=== PATIENT | female | born 1990 | race African-American/Black ===

== ENCOUNTER 2020-06-29 12:41 | Emergency (ER) | payer OTHER ==
[~2020-06-29] VITALS: Ht 152.4 cm; Wt 64.0 kg
[2020-06-29 12:59] VITALS: Ht 152.4 cm; Wt 64.0 kg
[2020-06-29 14:41] LABS: BASOPHIL % 0.3 % (0.2-1.3); PLATELET COUNT 213 x10^3mcL (179-408)
[2020-06-29 14:45] LABS: RED CELL DISTRIBUTION WIDTH 16.4 % (12.3-17.7)
[2020-06-29 14:51] LABS: CALCIUM 8.9 mg/dL (8.5-10.1); CARBON DIOXIDE 27.2 mmol/L (21-32); CHLORIDE SERUM 104 mmol/L (98-107); GFR1 > 60 mL/min; GLUCOSE SERUM 92 mg/dL (74-106); POTASSIUM SERUM 3.8 mmol/L (3.5-5.1); SODIUM SERUM 139 mmol/L (136-145)
[2020-06-29 14:57] LABS: ALBUMIN 3.9 g/dL (3.4-5.0); ALKALINE PHOSPHATASE 42 U/L (46-116); ALT/SGPT 20 U/L (14-59); AST/SGOT 15 U/L (15-37); BILIRUBIN TOTAL 0.73 mg/dL (0.20-1.00); LIPASE 72 IU/L (73-393); TOTAL PROTEIN, SERUM 7.6 g/dL (6.4-8.2)
[2020-06-29 15:04] LABS: UA SPECIFIC GRAVITY >=1.030 (1.005-1.035); microscopic required? YES; urine erythrocyte 3+ (NEGATIVE)
[2020-06-29 15:51] LABS: AMPHETAMINE QUAL UR NONE DETECTED (See below)
[2020-06-29 17:50] VITALS: BP 114/63
== END 2020-06-29 17:50 | disposition home or self-care (01) ==
LOC: ED 12:41
PROVIDERS: Emergency Medicine
DX: R10.30 Lower abdominal pain, unspecified (principal); R11.0 Nausea; F12.988 Cannabis use, unspecified with other cannabis-induced disorder; N94.6 Dysmenorrhea, unspecified; F17.210 Nicotine dependence, cigarettes, uncomplicated; Z71.6 Tobacco abuse counseling
CPT/HCPCS: 99406; J1885; Q0162

== ENCOUNTER 2020-07-18 14:48 | Emergency (ER) | payer OTHER, SELFPAY ==
[~2020-07-18] VITALS: Ht 152.4 cm; Wt 65.8 kg
[2020-07-18 14:51] VITALS: BP 112/76; Ht 152.4 cm; Wt 65.8 kg
== END 2020-07-18 16:26 | disposition left against medical advice (07) ==
LOC: ED 14:48
DX: Z53.21 Procedure and treatment not carried out due to patient leaving prior to being seen by health care provider (principal)